=== PATIENT | male | born 1985 | race Hispanic/Latino ===

== ENCOUNTER 2019-08-03 14:15 | Inpatient (IN) | payer SELFPAY ==
[~2019-08-03 14:15] MED LIST: Dexamethasone 20 MG/5 ML VIAL ONE; EPHEDRINE 25 MG/5 ML SYRINGE ONE; Lidocaine 1% PF 5 ML VIAL ONE; Ondansetron PF 4 MG/2 ML Vial ONE; PHENYLEPHRINE-NS 100 MCG/ML 10 ML SYRINGE ONE; PROPOFOL 200 MG/20 ML VIAL ONE; Rocuronium Bromide 10 MG/ML (10ML VIAL) ONE; Succinylcholine Chloride 20 MG/ML 10 ml SYRINGE FS ONE
[2019-08-03] MEDS ORDERED: Iopamidol-370 76% 500 ML 1 ML ONE (14:18)
[2019-08-03] MEDS ORDERED: Adacel (T-DAP) 0.5 ML SYRINGE ONE (14:49)
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
[2019-08-03] MEDS ORDERED: Fentanyl 100 MCG/2 ML VIAL ONE ×2 (14:51→15:19)
[2019-08-03] MEDS ORDERED: Lidocaine 1% w/Epinephrine 1:100K 20 ML VIAL ONE ×3 (14:52→19:11)
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
[2019-08-03 15:43] LABS: #Basophils 0.1 thou/uL (0.0-0.2); #Eosinphils 0.3 thou/uL (0.0-0.7); #Lymphocytes 4.4 thou/uL (1.20-3.40); #Monocytes 0.5 thou/uL (0.11-0.59); #Neutrophils 4.6 thou/uL (1.40-6.50); %Basophils 1.3 % (0.0-1.0); %Eosinophils 2.9 % (0.0-10.0); %Lymphocytes 44.4 % (21.0-51.0); %Monocytes 5.2 % (0.0-10.0); %Neutrophils 46.3 % (42.0-75.0); Hemoglobin 16.2 g/dL (14.0-18.0); Mean Corpuscular HGB CONC 33.5 g/dL (32.0-36.0); Mean Corpuscular Hemoglobin 31.3 pg (27.0-31.0); Mean Corpuscular Volume 93.4 fL (78.0-98.0); Mean Platelet Volume 8.5 fL (7.4-10.4); Platelet Count 255 thou/uL (130-400); RBC Distribution Width 12.3 % (11.5-14.5); Red Blood Cell (RBC) Count 5.16 mill/uL (4.70-6.10)
[2019-08-03 15:46] LABS: Bilirubin Negative (Negative); Blood, Urine Negative (Negative); Clarity Clear (Clear); Glucose, Urine (Dipstick) Normal (Negative); Leukocyte Negative Leu/uL (Negative); Nitrite Negative (Negative); Protein, Urine (Dipstick) Negative (Neg-Trace); Urobilinogen Normal mg/dL (Less than 2)
[2019-08-03 15:53] LABS: ALT (SGPT) 32 U/L (8-55); AST (SGOT) 31 U/L (5-34); Albumin 4.6 g/dL (3.5-5.0); Alkaline Phosphatase 95 U/L (40-110); Anion Gap 13 mmol/L (10-20); BUN (Urea Nitrogen) 14 mg/dL (8.9-20.6); Bilirubin, Total 0.8 mg/dL (0.2-1.2); Calc. Creatinine Clearance 0 mL/min (70-130); Calcium 9.2 mg/dL (7.8-10.44); Carbon Dioxide 27 mmol/L (22-29); Chloride 103 mmol/L (98-107); Estimated GFR-MDRD 73; Globulin 3.6 g/dL (2.4-3.5); Glucose 139 mg/dL (70-105); Lipase 24 U/L (8-78); Potassium 3.4 mmol/L (3.5-5.1); Protein, Total 8.2 g/dL (6.0-8.3); Sodium 140 mmol/L (136-145)
[2019-08-03] MEDS ORDERED: Dextrose 5% in Water 1,000 ML IV PRN (15:57)
[2019-08-03] MEDS ORDERED: Ondansetron PF 4 MG/2 ML Vial IVP PRN (15:57)
[2019-08-03] MEDS ORDERED: Dextrose 50% Abboject 50 ML SYRINGE SLOW IVP PRN (15:57)
[2019-08-03] MEDS ORDERED: traMADol HCl 50 MG TAB PO PRN (16:05)
[2019-08-03] MEDS ORDERED: Morphine 4 MG/ML VIAL ONE (16:18)
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
--- NOTE | 2019-08-03 17:07 | CT ---
CT FACIAL BONES WITHOUT CONTRAST: 08/03/19 INDICATIONS: Trauma to face. FINDINGS: Soft tissue swelling seen in the left nasolabial fold and over the left orbit and extending over the left face and maxilla. The nasal bones appear intact. Orbits appear intact. Zygoma are intact. The lamina papyracea appear i ntact. There is mucosal edema involving the ethmoid air cells. There is mucosal thickening involving the maxillary sinuses and an air fluid level in the right maxillary antrum. The sphenoid air cells ar e clear. The frontal air cells are small. Review of the maxilla shows subtle cortical irregularity involving the posterior wall of the right ma xillary which may represent a subtle fracture. No definite fracture of the left maxillary sinus ident ified. Nasal bones appear intact. The mandible appears intact. IMPRESSION: 1. Soft tissue injury to the left face as described. 2. Possible subtle fracture involving the posterior wall of the right maxillary antrum. 3. Air fluid level in the right maxillary sinus and mucosal edema in the maxillary and ethmoid a ir cells as described. Findings were discussed with Dr. Fletcher.
[2019-08-03 18:11] VITALS: BMI 32.7
[2019-08-03 18:11] LABS: Magnesium 2.2 mg/dL (1.6-2.6); Phosphorus 3.3 mg/dL (2.3-4.7)
[2019-08-03] MEDS: Acetaminophen 500 MG TAB PO SCH ×3 (18:35→23:29)
[2019-08-03] MEDS: Sodium Chloride 0.9% 1,000 ML IV SCH (18:36)
[2019-08-03] MEDS: Morphine 4 MG/ML VIAL SLOW IVP PRN ×2 (18:37→23:09)
[2019-08-03] MEDS ORDERED: Ophthalmic Irrigation Solution 15 ML ONE ×2 (19:11→21:36)
[2019-08-03] MEDS ORDERED: Sodium Chloride 0.9% 0 ML ONE (19:11)
[2019-08-03] MEDS ORDERED: Bacitracin Zinc Ointment 30 gm TUBE ONE (19:11)
[2019-08-03] MEDS ORDERED: Chlorhexidine Gluconate 15 ML UDCUP SSP ONE (19:12)
[2019-08-03] MEDS ORDERED: Fentanyl 250 MCG/5 ML VIAL ONE (19:15)
[2019-08-03] MEDS ORDERED: Potassium Phosphate 15 MMOL in Sodium Chloride 0.9% 250 ML 250 ML IVPB SCH (19:30)
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
[2019-08-03] MEDS ORDERED: Phenylephrine 10 MG/ML VIAL ONE (20:39)
[2019-08-03] MEDS ORDERED: Ondansetron HCl/PF 4 MG/2 ML Vial IVP PRN (21:58)
[2019-08-03] MEDS ORDERED: Promethazine HCl 25 MG/ML VIAL IM PRN (21:58)
[2019-08-03] MEDS ORDERED: Promethazine HCl 25 MG/ML VIAL SLOW IVP PRN (21:58)
[2019-08-03] MEDS ORDERED: Ketorolac Tromethamine 30 MG/ML VIAL IVP PRN (23:39)
[2019-08-04] MEDS: Sodium Chloride 0.9% 1,000 ML IV SCH (03:29)
[2019-08-04] MEDS: traMADol HCl 50 MG TAB PO PRN ×3 (03:50→15:39)
[2019-08-04] MEDS: Acetaminophen 500 MG TAB PO SCH ×2 (05:44→15:39)
[2019-08-04 06:44] LABS: #Lymphocytes 0.8 thou/uL (1.20-3.40); #Monocytes 0.5 thou/uL (0.11-0.59); %Basophils 0.1 % (0.0-1.0); %Monocytes 3.8 % (0.0-10.0); %Neutrophils 90.1 % (42.0-75.0); Hemoglobin 13.5 g/dL (14.0-18.0); Mean Corpuscular HGB CONC 32.6 g/dL (32.0-36.0); Mean Corpuscular Hemoglobin 30.2 pg (27.0-31.0); Mean Corpuscular Volume 92.7 fL (78.0-98.0); Mean Platelet Volume 8.3 fL (7.4-10.4); Platelet Count 243 thou/uL (130-400); RBC Distribution Width 12.3 % (11.5-14.5); Red Blood Cell (RBC) Count 4.48 mill/uL (4.70-6.10); White Blood Cell (WBC) Count 13.3 thou/uL (4.8-10.8)
[2019-08-04 07:02] LABS: Anion Gap 13 mmol/L (10-20); BUN (Urea Nitrogen) 13 mg/dL (8.9-20.6); Calc. Creatinine Clearance 148 mL/min (70-130); Calcium 7.9 mg/dL (7.8-10.44); Carbon Dioxide 24 mmol/L (22-29); Chloride 105 mmol/L (98-107); Estimated GFR-MDRD Greater than 90; Glucose 146 mg/dL (70-105); Potassium 4.3 mmol/L (3.5-5.1); Sodium 138 mmol/L (136-145)
--- NOTE | 2019-08-04 07:57 | CT ---
PRELIMINARY REPORT/[facility]/EMERGENCY AFTER HOURS PROCEDURE EXAM: CT Head Without Intravenous Contrast. CLINICAL HISTORY: FU eval left sylvian fissure tSAH TECHNIQUE: Axial computed tomography images of the head/brain without intravenous contrast. COMPARISON: 08/03/19 FINDINGS: BRAIN: Subarachnoid hemorrhage left sylvian fissure redemonstrated, as well as the medial left middle cranial fossa. No mass lesion. No CT evidence for acute territorial infarct. No midline shift or ext ra-axial collection. VENTRICLES: No hydrocephalus. ORBITS: The orbits are unremarkable. SINUSES AND MASTOIDS: The mastoid air cells are clear. Bilateral sinonasal disease/opacification. SOFT TISSUES: Facial swelling/hematoma/foreign bodies redemonstrated. No radiopaque foreign body is s een. BONES: No acute skull fracture. IMPRESSION: Stable exam. ELECTRONICALLY SIGNED BY: Emily Cox MD Aug 04, 2019 5:32:28 AM CDT FINAL REPORT EMERGENT AFTER HOURS CT OF THE BRAIN WITHOUT CONTRAST: FINDINGS/IMPRESSION: I agree with the findings and impression given in the preliminary report per [facility] physici an. Stable blood along the left sylvian fissure. POS: KATEYA
[2019-08-04] MEDS ORDERED: Famotidine/PF 20 mg/2ml Vial SLOW IVP SCH (09:00)
[2019-08-04] MEDS ORDERED: Polyethylene Glycol 3350 17 GM Packet PO SCH (09:00)
[2019-08-04] MEDS ORDERED: Bacitracin 1 PK TOP SCH (09:00)
[2019-08-04] MEDS ORDERED: Senokot S 8.6-50 MG TAB PO SCH (09:00)
[2019-08-04 15:05] VITALS: BP 130/84; TEMP 97.9
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
[2019-08-04] MEDS ORDERED: Amoxicillin/Potassium Clav 500 MG TAB PO SCH (21:00)
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
== END 2019-08-04 16:35 | disposition home or self-care (01) | DRG 579 ==
LOC: ERS 14:15 → SURG A 16:17
PROVIDERS: ADMIT Surgery; ATTEND Surgery
PROC: 0KQ10ZZ Repair Facial Muscle, Open Approach (ICD-10-PCS; principal; 2019-08-03)
DX: S01.422A Laceration with foreign body of left cheek and temporomandibular area, initial encounter (principal); S06.6X9A Traumatic subarachnoid hemorrhage with loss of consciousness of unspecified duration, initial encounter; R40.2413 Glasgow coma scale score 13-15, at hospital admission; S01.21XA Laceration without foreign body of nose, initial encounter; S01.81XA Laceration without foreign body of other part of head, initial encounter; S01.111A Laceration without foreign body of right eyelid and periocular area, initial encounter; S01.411A Laceration without foreign body of right cheek and temporomandibular area, initial encounter; V03.90XA Pedestrian on foot injured in collision with car, pick-up truck or van, unspecified whether traffic or nontraffic accident, initial encounter; Z87.891 Personal history of nicotine dependence
CPT/HCPCS: 36415; 70450; 70486; 71260; 72125; 74177; 80048; 80053; 81003; 83690; 83735; 84100; 85025; 90471; 90715; 96374; 96375; J0690; J1100; J1885; J2001; J2270; J2370; J2405; J2704; J3010; J3490; J7050; Q9967; S0028

== ENCOUNTER 2019-09-07 07:57 | Outpatient (CLI) | payer OTHER ==
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
== END 2019-09-07 07:58 | disposition home or self-care (01) ==
LOC: TBSIIMAG 07:57
PROVIDERS: ATTEND Physician Assistant
DX: S06.6X0A Traumatic subarachnoid hemorrhage without loss of consciousness, initial encounter (principal)
CPT/HCPCS: 70450

== ENCOUNTER 2021-11-08 15:40 | Emergency (ER) | payer OTHER, SELFPAY ==
[2021-11-08] MEDS ORDERED: Lidocaine 1% PF 5 ML VIAL ONE (17:19)
== END 2021-11-08 18:25 | disposition home or self-care (01) ==
LOC: ERS 15:40
DX: S51.012A Laceration without foreign body of left elbow, initial encounter (principal); Z87.891 Personal history of nicotine dependence; W19.XXXA Unspecified fall, initial encounter
CPT/HCPCS: 12002